=== PATIENT | female | born 1970 | race Hispanic/Latino ===

== ENCOUNTER 2019-04-23 01:22 | Emergency (ER) | payer BC ==
[~2019-04-23] VITALS: Ht 160 cm; Wt 65.8 kg
--- OUTSIDE RECORDS SUMMARY | 2019-04-23 01:25 | XMS REPORT | Continuity of Care Document ---
Author Author Cylance Address Unknown Phone Unavailable Care Team Providers Care Front Desk Representative Name Role Phone [employer] Unavailable Unavailable Problems Problem Status Onset Date Classification Date Reported Comments Source SCREENING Active 02/04/2019 [facility] Pelvic and perineal pain 05/08/2018 11/19/2018 [facility] DX: R10.2=PELVIC AND PERINEAL PAIN Active 04/29/2018 [facility] BREAST PAIN Active 01/27/2018 [facility] CHEST Active 02/21/2017 [facility] Z12.31-ENCOUNTER FOR SCREENING MAMMOGRAM Active 10/25/2015 [facility] Chronic cough (finding) Active Problem 02/24/2017 [facility] Acquired absence of both cervix and uterus 11/19/2018 [facility] Obesity (disorder) Active Problem 03/23/2019 [facility] Acute gastroenteritis (disorder) Active Problem 03/23/2019 [facility] Increased frequency of urination (finding) Active Problem 03/23/2019 [facility] Indigestion (finding) Active Problem 03/23/2019 [facility] Nausea (finding) Active Problem 03/23/2019 [facility] Medications Medication Details Route Status Patient Instructions Ordering Provider Order Date Source omeprazole 40 mg oral delayed release capsule 40 mg=1 cap, PO, Daily, # 30 cap, 0 Refill(s), Pharmacy: [facility] [id number] Active 02/11/2019 [facility] Ondansetron 4 MG Disintegrating Tablet 4 mg=1 tab, PO, TID, PRN Nausea / Vomiting, Dissolve tab under tongue, # 10 tab, 0 Refill(s), Pharmacy: [facility] [id number] Active 02/11/2019 [facility] atorvastatin 10 mg oral tablet 10 mg=1 tab, PO, Bedtime, # 90 tab, 1 Refill(s), Pharmacy: [facility] [id number] Active 01/31/2019 [facility] dehydroepiandrosterone 6.5 MG Vaginal Suppository [Intrarosa] See Instructions, VAG Bedtime, # 1 box, 0 Refill(s), Pharmacy: [facility] [id number] Active 01/29/2019 [facility] montelukast 10 mg oral tablet 10 mg=1 tab, PO, Bedtime, # 30 tab, 0 Refill(s), Pharmacy: [facility] [id number] Active 01/29/2019 [facility] ibuprofen 600 mg oral tablet 600 mg=1 tab, PO, Q12H, PRN Pain or Fever, Take with food, X 10 day, # 40 tab, 0 Refill(s), Pharmacy: [facility] [id number] Active 01/29/2019 [facility] tizanidine 2 mg oral tablet 2 mg=1 tab, PO, Q12H, PRN for muscle spasms, # 40 tab, 0 Refill(s), Pharmacy: [facility] [id number] Active 01/29/2019 [facility] fluconazole 150 mg oral tablet 150 mg=1 tab, PO, ONCE, may repeat dose in 3 days if unimproved, # 1 tab, 1 Refill(s), Pharmacy: [facility] [id number] No Longer Active 09/02/2018 [facility] amoxicillin 500 mg oral tablet 500 mg=1 tab, PO, BID, X 10 day, # 20 tab, 0 Refill(s), Pharmacy: [facility] [id number] No Longer Active 09/02/2018 [facility] levocetirizine dihydrochloride 5 MG Oral Tablet [Xyzal] 5 mg=1 tab, PO, QPM, # 30 tab, 0 Refill(s), Pharmacy: [facility] [id number] Active 05/28/2018 [facility] Fluticasone propionate 0.05 MG/ACTUAT Metered Dose Nasal Harvey 1 spray, NASAL, Daily, # 3 ea, 3 Refill(s), [id number] Active 05/28/2018 [facility] valACYclovir 1 g oral tablet 1 gm=1 tab, PO, Q8H, X 7 day, # 21 tab, 0 Refill(s), Pharmacy: [facility] [id number] No Longer Active 05/28/2018 [facility] tramadol hydrochloride 50 MG Oral Tablet 50 mg=1 tab, PO, BID, X 15 day, # 30 tab, 0 Refill(s) No Longer Active 05/28/2018 [facility] gabapentin 300 MG Oral Capsule 300 mg=1 cap, PO, BID, # 40 caplet, 1 Refill(s), Pharmacy: [facility] [id number] No Longer Active 05/28/2018 [facility] Silver Sulfadiazine 10 MG/ML Topical Cream [Silvadene] 1 appl, TOP, BID, apply thin layer to affected area, X 7 day, # 50 gm, 0 Refill(s), Pharmacy: [facility] [id number] Active 01/23/2018 [facility] predniSONE 20 mg oral tablet 20 mg=1 tab, PO, Daily, X 7 day, # 7 tab, 0 Refill(s), Pharmacy: [facility] 00493 Active 01/23/2018 [facility] Amoxicillin 875 MG / Clavulanate 125 MG Oral Tablet [Augmentin 875-mg] 875 mg=1 tab, PO, Q12H, X 7 day, # 14 tab, 0 Refill(s), Pharmacy: [facility] 397[address] Active 01/23/2018 [facility] Oseltamivir 75 MG Oral Capsule [Tamiflu] 75 mg, PO, Q12H, X 5 day, # 10 cap, 0 Refill(s), Pharmacy: [facility] [id number] Active 07/30/2017 [facility] Brompheniramine Maleate 0.4 MG/ML / Dextromethorphan Hydrobromide 2 MG/ML / Pseudoephedrine Hydrochloride 6 MG/ML Oral Solution [Bromfed DM] 5 mL, PO, TID, PRN cough, X 8 day, # 120 mL, 0 Refill(s), Pharmacy: [facility] [id number] Active 07/30/2017 [facility] Ibuprofen 400 MG Oral Tablet 400 mg=1 tab, PO, Q8H, PRN Fever, as needed for fever or pain, X 14 day, # 30 tab, 0 Refill(s), Pharmacy: [facility] [id number] Active 07/30/2017 [facility] Allergies, Adverse Reactions, Alerts Substance Category Reaction Severity Reaction type Status Date Reported Comments Source Tylenol Assertion Drug allergy Active [facility] codeine Assertion Drug allergy Active [facility] levoFLOXacin Assertion Drug allergy Active [facility] Immunizations Immunization Date Given Site Status Last Updated Comments Source influenza virus vaccine, inactivated<sup>1</sup> 05/28/2018 Left Deltoid completed Min Result Comment: PATIENT WAITED IN ROOM TEN MINS NO ALLERGIC REACTION. [facility] Results No Data Provided for This Section Pathology Reports No Data Provided for This Section Diagnostic Reports Report Value Date Source Breast Mammo Scrn JOHN incl CAD MA BILATERAL DIGITAL SCREENING MAMMOGRAM WITH CAD: 02/05/2019 CLINICAL: Routine screening Z12.31. Current study was evaluated with a Computer Aided Detection (CAD) system. COMPARISON:Comparison is made to exams dated: 02/05/2018 mammogram and 10/28/2015 mammogram - [facility]. TECHNIQUE: Mammographic views were obtained using digital acquisition. International Battery Version 1.3 was utilized for computer aided detection. FINDINGS: There are scattered fibroglandular densities in both breasts. There are benign appearing calcifications and densities in the right breast. There also are benign appearing densities in the left breast. No significant masses, calcifications, or other findings are seen in either breast. There has been no significant interval change. IMPRESSION: BENIGN RECOMMENDATION:There is no mammographic evidence of malignancy. A 1 year screening mammogram is recommended.(02/06/2020) This exam was interpreted at [id number] for [facility]. Linda joseph/sandra:02/05/2019 10:49:32 Editorial Assistant(s): Mary Romero, [facility] letter sent: BI-RADS 1/2 Mammogram BI-RADS: 2 Benign 02/05/2019 [facility] Pelvis w Pelvis Transvaginal US Patient Name: DIOGO AARON : 1970; Age: 47 years y/o Female MR: [id number] Study: Pelvis w Pelvis Transvaginal US 05/02/2018 12:57 PM CDT Ordering Physician: MD Bouchra Villalobos MD Clinical Indication: - pelvic pain; Comparison: None Transabdominal and transvaginal pelvic ultrasound exam Transabdominal series demonstrates absent uterus. Ovaries not adequately seen. Visualized urinary bladder is not remarkable. To better evaluate uterus ovaries and adnexa transvaginal study was performed. This demonstrates absent uterus. Right ovary 2.9 x 1.8 x 2.2 cm. Left ovary 2.4 x 2.1 x 1.8 cm. No adnexal mass or pathologic fluid is evident transvaginally. IMPRESSION: Prior hysterectomy. No pelvic mass or pathologic fluid is evident sonographically. SL: [id number] 05/02/2018 [facility] Breast Complete John US COMPLETE ULTRASOUND OF BOTH BREASTS AND AXILLA: 02/05/2018 CLINICAL: Bilateral Pain/Lump. COMPARISON:Comparison is made to exams dated: 02/05/2018 mammogram, 10/28/2015 mammogram, 05/16/2006 ultrasound, 05/16/2006 mammogram - [facility], and 11/08/2005. TECHNIQUE: Color flow and real-time ultrasound of both breasts four quadrants, retroareolar, and axilla regions were performed. Thompson scale images of the real- time examination were reviewed. FINDINGS: No abnormalities were seen sonographically in either breast or either axilla. IMPRESSION: NEGATIVE RECOMMENDATION:There is no sonographic evidence of malignancy. There are no mammographic or sonographic abnormalities seen in either breast to correspond with the palpable nodularities and pain which likely represent hormonal stimulation and normal fibroglandular tissue. A 1 year screening mammogram is recommended.(02/06/2019) The results were reviewed with the patient. This exam was interpreted at [id number] for [facility]. SUMMARY: The patient will follow up with their primary care physician. It was discussed with the patient that if clinical symptoms worsen, she should return immediately for additional evaluation by her physician and follow up with us for additional imaging. Linda joseph/penrad:02/05/2018 16:18:49 Editorial Assistant(s): Francia Kim [facility] letter sent: BI-RADS 1/2 Ultrasound BI-RADS: 1 Negative 02/05/2018 [facility] Breast Mammo Diag JOHN incl CAD MA BILATERAL DIGITAL DIAGNOSTIC MAMMOGRAM WITH CAD: 02/05/2018 CLINICAL: Bilateral lumps and pain. Current study was evaluated with a Computer Aided Detection (CAD) system. COMPARISON:Comparison is made to exams dated: 10/28/2015 mammogram, 05/16/2006 ultrasound, 05/16/2006 mammogram - [facility], 11/08/2005, 04/26/2005, and 03/20/2005. TECHNIQUE: Mammographic views were obtained using digital acquisition. [employer] Version 1.3 was utilized for computer aided detection. FINDINGS: There are scattered fibroglandular densities in both breasts. There are benign appearing calcifications and densities in the right breast. There also are benign appearing densities in the left breast. No significant masses, calcifications, or other findings are seen in either breast. There has been no significant interval change. IMPRESSION: INCOMPLETE: NEEDS ADDITIONAL IMAGING EVALUATION RECOMMENDATION:There is no mammographic abnormality seen in either breast to correspond with the lateral areas of clinical concern and pain, however, ultrasound is recommended. The results were reviewed with the patient. This exam was interpreted at [id number] for [facility]. SUMMARY: Ultrasound will be performed at this time; please see dedicated separate report. Linda arroyot/:02/05/2018 16:19:32 Editorial Assistant(s): Verenice Pérez, [facility] Mammogram BI-RADS: 0 Indeterminate 02/05/2018 [facility] Chest 2 views DX PROCEDURE: 2 view chest x-ray. Clinical Indication: - r05 cough. Comparison: 02/13/2016 FINDINGS: Normal cardiomediastinal silhouette. No focal lung disease. No effusion or pneumothorax. The visualized osseous structures are unremarkable. IMPRESSION: No focal lung disease. 02/21/2017 [facility] 2 views DX Two-view chest. INDICATION: Cough and chest congestion for one week. Comparison: None. FINDINGS: The cardiomediastinal silhouette is normal in size. Lungs are clear. Costophrenic angles are sharp. No suspicious osseous abnormality is seen. IMPRESSION: No evidence for acute cardiopulmonary disease. SL: [id number] 02/13/2016 [facility] Digital Mammo Screening John MA - DIGITAL MAMMO SCREENING JOHN MA BILATERAL DIGITAL SCREENING MAMMOGRAM WITH CAD: 10/28/2015 CLINICAL: Routine Annual. Current study was evaluated with a Computer Aided Detection (CAD) system. Comparison is made to exams dated: 05/16/2006 mammogram - [facility] and 03/20/2005. There are scattered fibroglandular densities in both breasts. Patient complains of intermittent breast pain and/or tenderness. There are benign appearing densities in both breasts. There also is a benign appearing calcification in the right breast. No significant masses, calcifications, or other findings are seen in either breast. There has been no significant interval change. IMPRESSION: BENIGN Clinical management of the patient's breast complaints is recommended. There is no mammographic evidence of malignancy. A 1 year screening mammogram is recommended. SUMMARY: As the patient has breast parenchyma with scattered densities, this could obscure additional abnormalities. The patient would likely benefit from a supplemental screening test such as bilateral ultrasound. This should be discussed with the patient by the referring physician. Linda joseph/sandra:11/02/2015 15:44:44 Editorial Assistant: Teresa Matamoros, [facility] This exam was dictated and interpreted by [id number] for [facility]. letter sent: Bilateral Benign Mammogram BI-RADS: 2 Benign 10/28/2015 [facility] Consultation Notes No Data Provided for This Section Discharge Summaries No Data Provided for This Section History and Physicals No Data Provided for This Section Vital Signs Vital Sign Value Date Comments Source Respitory Rate 18 02/11/2019 [facility] Heart Rate 68 02/11/2019 [facility] Temperature Oral (F) 97.5 F 02/11/2019 [facility] Systolic (mm Hg) 101 02/11/2019 [facility] Diastolic (mm Hg) 71 02/11/2019 [facility] Weight 70.682 02/11/2019 [facility] Height 157.48 cm 02/11/2019 [facility] BMI Calculated 28.5 02/11/2019 [facility] Weight 70.455 01/29/2019 [facility] Height 154.94 cm 01/29/2019 [facility] BMI Calculated 29.35 01/29/2019 [facility] Temperature Oral (F) 98.0 F 01/29/2019 [facility] Heart Rate 85 01/29/2019 [facility] Respitory Rate 16 01/29/2019 [facility] Systolic (mm Hg) 109 01/29/2019 [facility] Diastolic (mm Hg) 69 01/29/2019 [facility] BMI Calculated 27.34 09/02/2018 [facility] Weight 70 09/02/2018 [facility] Height 160.02 cm 09/02/2018 [facility] Temperature Oral (F) 98.1 F 09/02/2018 [facility] Heart Rate 65 09/02/2018 [facility] Respitory Rate 14 09/02/2018 [facility] Systolic (mm Hg) 106 09/02/2018 [facility] Diastolic (mm Hg) 68 09/02/2018 [facility] BMI Calculated 26.8 05/28/2018 [facility] Respitory Rate 16 05/28/2018 [facility] Heart Rate 59 05/28/2018 [facility] Systolic (mm Hg) 115 05/28/2018 [facility] Diastolic (mm Hg) 76 05/28/2018 [facility] Temperature Oral (F) 97.3 F 05/28/2018 [facility] Height 160.02 cm 05/28/2018 [facility] Weight 68.636 05/28/2018 [facility] Weight 73.182 01/23/2018 [facility] Height 154.94 cm 01/23/2018 [facility] Systolic (mm Hg) 100 01/23/2018 [facility] Diastolic (mm Hg) 64 01/23/2018 [facility] Heart Rate 66 01/23/2018 [facility] Temperature Oral (F) 97.4 F 01/23/2018 [facility] Respitory Rate 14 01/23/2018 [facility] BMI Calculated 30.48 01/23/2018 [facility] Respitory Rate 16 07/30/2017 [facility] Heart Rate 87 07/30/2017 [facility] Systolic (mm Hg) 102 07/30/2017 [facility] Diastolic (mm Hg) 59 07/30/2017 [facility] Temperature Oral (F) 99.3 F 07/30/2017 [facility] Weight 73.182 07/30/2017 [facility] BMI Calculated 29.51 07/30/2017 [facility] Height 157.48 cm 07/30/2017 [facility] Encounters Location Location Details Encounter Type Encounter Number Reason For Visit Attending Provider ADM Date DC Date Status Source [facility] Outpatient [id number] Kala Thakur 10/28/2015 10/29/2015 [facility] Outpatient [id number] [place] 11/07/2015 Active [facility] Outpatient [id number] MACIEL GORDILLO 02/13/2016 Active [facility] Outpatient [id number] KALA THAKUR 02/23/2016 Active [facility] Outpatient [id number] MARISELA CUI 09/27/2016 Active [facility] Outpatient [id number] KALA THAKUR 12/25/2016 Active [facility] Outpatient [id number] KALA THAKUR 01/23/2017 Active [facility] Outpatient [id number] Kala Thakur 02/21/2017 02/22/2017 [facility] Outpatient [id number] AKIKO TOLBERT 03/01/2017 Active [facility] Outpatient [id number] KALA THAKUR 07/30/2017 Active [facility] Outpatient [id number] Kala Thakur 07/30/2017 07/31/2017 [facility] Outpatient [id number] KALA THAKUR 01/23/2018 Active [facility] Outpatient [id number] Kala Thakur 01/23/2018 01/24/2018 [facility] Outpatient [id number] Kala Thakur 02/05/2018 02/06/2018 [facility] Outpatient [id number] Bouchra Leonarddeb 05/02/2018 05/03/2018 [facility] Outpatient [id number] KALA THAKUR 05/28/2018 Active [facility] Outpatient [id number] Kala Thakur 05/28/2018 05/29/2018 [facility] Phone Message [id number] 06/19/2018 06/21/2018 [facility] Outpatient [id number] AKIKO TOLBERT 09/02/2018 Active [facility] Outpatient [id number] Akiko Tolbert 09/02/2018 09/03/2018 [facility] Outpatient [id number] Kala Thakur 01/29/2019 Active [facility] Outpatient [id number] Kala Thakur 01/29/2019 01/30/2019 [facility] Outpatient [id number] Kala Thakur 02/05/2019 02/06/2019 [facility] Outpatient [id number] Lolly Gilman 02/11/2019 Active [facility] Outpatient [id number] Kala Thakur 02/11/2019 02/12/2019 [facility] Procedures Procedure Code Date Perfomer Comments Source Mammogram<sup>1, 2</sup> [id number] 02/05/2019 There is no mammographic evidence of malignancy. A 1 year screening mammogram is recommended.(02/06/2020)A 1 year screening mammogram is recommended.(02/06/2019) [facility] Mammogram<sup>1</sup> [id number] 02/05/2018 A 1 year screening mammogram is recommended.(02/06/2019) [facility] Mammogram [id number] 10/28/2015 [facility] Hysterectomy [id number] 08/26/2003 [facility] section<sup>1</sup> 46642720 x3 [facility] section<sup>2</sup> 50349753 x3 [facility] section<sup>3</sup> 57700550 x3 [facility] Assessment and Plan No Data Provided for This Section Plan of Care No Data Provided for This Section Social History Social History Date Source Social History TypeResponse Employment/School Status: Employed. Work/School description: floor cashier. Alcohol Never Smoking Status Never smoker; Exposure to Tobacco Smoke None; Cigarette Smoking Last 365 Days No; Reg Smoking Cessation Counseling No entered on: 01/29/19 03/01/2017 [facility] Social History TypeResponse Employment/School Status: Employed. Work/School description: floor cashier. Alcohol Never Smoking Status Never smoker; Exposure to Tobacco Smoke None; Cigarette Smoking Last 365 Days No; Reg Smoking Cessation Counseling No entered on: 02/11/19 03/01/2017 [facility] Family History No Data Provided for This Section Advance Directives No Data Provided for This Section Functional Status No Data Provided for This Section
--- OUTSIDE RECORDS SUMMARY | 2019-04-23 01:25 | XMS REPORT | Summary of Care ---
Author Author [facility] Organization [facility] Address Unknown Phone Unavailable Encounter DAVIN Rosenthal(NARINDER) [id number] Date(s): 01/29/19 - 01/29/19 [facility] [address] [facility] [address] [place] [address]- Discharge Disposition: Home or Self Care Attending Physician: Ping Fountain MD Vital Signs Most recent to 1 oldest [Reference Range]: Height 154.94 cm (01/29/19 12:20 PM) Temperature Oral 98.0 DegF [96.4-99.1 DegF] (01/29/19 12:20 PM) Blood Pressure 109/69 mmHg [90-140/60-90 mmHg] (01/29/19 12:20 PM) Respiratory Rate 16 BRMIN [14-20 BRMIN] (01/29/19 12:20 PM) Peripheral Pulse 85 bpm Rate [60-100 bpm] (01/29/19 12:20 PM) Weight 70.455 kg (01/29/19 12:20 PM) Body Mass Index 29.35 m2 (01/29/19 12:20 PM) Problem List Condition Effective Dates Status Health Status Informant Obesity(Confirmed) Active Allergies, Adverse Reactions, Alerts Substance Reaction Severity Status codeine Active Tylenol Active levoFLOXacin Active Medications ibuprofen 600 mg oral tablet 600 mg=1 tab, PO, Q12H, PRN Pain or Fever, Take with food, X 10 day, # 40 tab, 0 Refill(s), Pharmacy: [facility] [id number] Start Date: 01/29/19 Stop Date: 02/08/19 Status: Ordered Intrarosa 6.5 mg vaginal insert See Instructions, VAG Bedtime, # 1 box, 0 Refill(s), Pharmacy[place] [email or web address] [id number] Start Date: 01/29/19 Status: Ordered montelukast 10 mg oral tablet 10 mg=1 tab, PO, Bedtime, # 30 tab, 0 Refill(s), Pharmacy: [facility] [id number] Start Date: 01/29/19 Status: Ordered tizanidine 2 mg oral tablet 2 mg=1 tab, PO, Q12H, PRN for muscle spasms, # 40 tab, 0 Refill(s), Pharmacy: [facility] [id number] Start Date: 01/29/19 Status: Ordered Results No data available for this section Immunizations Given and Recorded Vaccine Date Status Refusal Reason influenza virus vaccine, inactivated1 05/28/18 Given 1Result Comment: PATIENT WAITED IN ROOM TEN MINS NO ALLERGIC REACTION. Procedures Procedure Date Related Diagnosis Body Site Status Mammogram1 02/05/18 Completed Hysterectomy 2004 Completed section2 Completed 1A 1 year screening mammogram is recommended.(02/06/2019) 2x3 Social History Social History Type Response Employment/School Status: Employed. Work/School description: hostess cashier. Alcohol Never Smoking Status Never smoker; Exposure to Tobacco Smoke None; Cigarette Smoking Last 365 Days No; Reg Smoking Cessation Counseling No entered on: 01/29/19 Assessment and Plan No data available for this section
--- OUTSIDE RECORDS SUMMARY | 2019-04-23 01:25 | XMS REPORT | Summary of Care ---
Author Author [facility] Organization [facility] Address Unknown Phone Unavailable Encounter [facility] Souleymanentr_sujata(FIN) [id number] Date(s): 10/28/15 - 10/28/15 [facility] [address] [place] [address]- Discharge Disposition: Home Attending Physician: Ping Fountain MD Referring Physician: Ping Fountain MD Vital Signs No data available for this section Problem List No data available for this section Allergies, Adverse Reactions, Alerts Substance Reaction Severity Status Tylenol Active Medications No data available for this section Results No data available for this section Immunizations No data available for this section Procedures Procedure Date Related Diagnosis Body Site Hysterectomy 2004 section1 1x3 Social History Social History Type Response Smoking Status Never smoker; Exposure to Tobacco Smoke None; Cigarette Smoking Last 365 Days No; Reg Smoking Cessation Counseling No Assessment and Plan No data available for this section
--- OUTSIDE RECORDS SUMMARY | 2019-04-23 01:25 | XMS REPORT | Summary of Care ---
Author Author [facility] Organization [facility] Address Unknown Phone Unavailable Encounter DAVIN Rosenthal(FIN) [id number] Date(s): 07/30/17 - 07/30/17 [facility] [address], [address] [place] [address]- [phone] Discharge Disposition: Home or Self Care Attending Physician: Ping Fountain MD Vital Signs Most recent to 1 oldest [Reference Range]: Height 157.48 cm (07/30/17 10:01 AM) Temperature Oral 99.3 DegF [96.4-99.1 DegF] *HI* (07/30/17 10:01 AM) Blood Pressure 102/59 mmHg [90-140/60-90 mmHg] (07/30/17 10:01 AM) Respiratory Rate 16 BRMIN [14-20 BRMIN] (07/30/17 10:01 AM) Peripheral Pulse 87 bpm Rate [60-100 bpm] (07/30/17 10:01 AM) Weight 73.182 kg (07/30/17 10:01 AM) Body Mass Index 29.51 m2 (07/30/17 10:01 AM) Problem List Condition Effective Dates Status Health Status Informant Obesity(Confirmed) Active Allergies, Adverse Reactions, Alerts Substance Reaction Severity Status codeine Active Tylenol Active levoFLOXacin Active Medications Bromfed DM oral syrup 5 mL, PO, TID, PRN cough, X 8 day, # 120 mL, 0 Refill(s), Pharmacy: [facility] [id number] Start Date: 07/30/17 Stop Date: 08/07/17 Status: Ordered ibuprofen 400 mg oral tablet 400 mg=1 tab, PO, Q8H, PRN Fever, as needed for fever or pain, X 14 day, # 30 ta b, 0 Refill(s), Pharmacy: [facility] [id number] Start Date: 07/30/17 Stop Date: 08/13/17 Status: Ordered TamiFLU 75 mg oral capsule 75 mg, PO, Q12H, X 5 day, # 10 cap, 0 Refill(s), Pharmacy: [facility] [id number] Start Date: 07/30/17 Stop Date: 08/04/17 Status: Ordered Results No data available for this section Immunizations No data available for this section Procedures Procedure Date Related Diagnosis Body Site Mammogram 10/28/15 Hysterectomy 2004 section1 1x3 Social History Social History Type Response Employment/School Status: Employed. Work/School description: neurology nurse. Alcohol Never Smoking Status Never smoker; Exposure to Tobacco Smoke None; Cigarette Smoking Last 365 Days No; Reg Smoking Cessation Counseling No Assessment and Plan No data available for this section
--- OUTSIDE RECORDS SUMMARY | 2019-04-23 01:25 | XMS REPORT | Summary of Care ---
Author Author [facility] Organization [facility] Address Unknown Phone Unavailable Encounter HQ Galo(NARINDER) [id number] Date(s): 02/05/18 - 02/05/18 [facility] [address] [place] [address]- Discharge Disposition: Home or Self Care Attending Physician: Ping Fountain MD Referring Physician: Ping Fountain MD Vital Signs No data available for this section Problem List Condition Effective Dates Status Health Status Informant Obesity(Confirmed) Active Allergies, Adverse Reactions, Alerts Substance Reaction Severity Status codeine Active Tylenol Active levoFLOXacin Active Medications No data available for this section Results No data available for this section Immunizations No data available for this section Procedures Procedure Date Related Diagnosis Body Site Status Mammogram1 02/05/18 Completed Hysterectomy 2004 Completed section2 Completed 1A 1 year screening mammogram is recommended.(02/06/2019) 2x3 Social History Social History Type Response Employment/School Status: Employed. Work/School description: service bar cashier. Alcohol Never Smoking Status Never smoker; Exposure to Tobacco Smoke None; Cigarette Smoking Last 365 Days No; Reg Smoking Cessation Counseling No entered on: 01/23/18 Assessment and Plan No data available for this section
--- OUTSIDE RECORDS SUMMARY | 2019-04-23 01:25 | XMS REPORT | Summary of Care ---
Author Author [facility] Organization [facility] Address Unknown Phone Unavailable Encounter HQ Jacintar_sujata(NARINDER) [id number] Date(s): 02/21/17 - 02/21/17 [facility] [address] [place] [address]- Discharge Disposition: Home or Self Care Attending Physician: Ping Fountain MD Vital Signs No data available for this section Problem List Condition Effective Dates Status Health Status Informant Chronic Active cough(Confirmed) Obesity(Confirmed) Active Allergies, Adverse Reactions, Alerts Substance Reaction Severity Status codeine Active Tylenol Active Medications No data available for this section Results No data available for this section Immunizations No data available for this section Procedures Procedure Date Related Diagnosis Body Site Mammogram 10/28/15 Hysterectomy 2004 section1 1x3 Social History Social History Type Response Alcohol Never Smoking Status Never smoker; Exposure to Tobacco Smoke None; Cigarette Smoking Last 365 Days No; Reg Smoking Cessation Counseling No Assessment and Plan No data available for this section
--- OUTSIDE RECORDS SUMMARY | 2019-04-23 01:25 | XMS REPORT | Summary of Care ---
Author Author [facility] Organization [facility] Address Unknown Phone Unavailable Encounter HQ Galo(FIN) [id number] Date(s): 05/02/18 - 05/02/18 [facility] [address] [place] [address]- Encounter Diagnosis Pelvic and perineal pain (Final) - 05/07/18 Acquired absence of both cervix and uterus (Final) - Discharge Disposition: Home or Self Care Attending Physician: Bouchra Villalobos MD Admitting Physician: Bouchra Villalobos MD Referring Physician: Bouchra Villalobos MD Vital Signs No data available for [...] Type Response Employment/School Status: Employed. Work/School description: tube room cashier. Alcohol Never Smoking Status Never smoker; Exposure to Tobacco Smoke None; Cigarette Smoking Last 365 Days No; Reg Smoking Cessation Counseling No entered on: 09/02/18 Assessment and Plan No data available for this section
--- OUTSIDE RECORDS SUMMARY | 2019-04-23 01:25 | XMS REPORT | Summary of Care ---
Author Author [facility] Organization [facility] Address Unknown Phone Unavailable Care Team Providers Care Unloader Name Role Phone Ping Fountain PCP Encounter HQ Galo(FIN) [phone] Date(s): 06/19/18 - 06/20/18 [facility] [address] [place] [address]- Vital Signs No data available for this [...] Type Response Employment/School Status: Employed. Work/School description: food and beverage cashier. Alcohol Never Smoking Status Never smoker; Exposure to Tobacco Smoke None; Cigarette Smoking Last 365 Days No; Reg Smoking Cessation Counseling No entered on: 09/02/18 Assessment and Plan No data available for this section
--- OUTSIDE RECORDS SUMMARY | 2019-04-23 01:25 | XMS REPORT | Summary of Care ---
Author Author [facility] Organization [facility] Address Unknown Phone Unavailable Care Team Providers Care Distribution Specialist Name Role Phone Ping Fountain PCP Encounter HQ Galo(FIN) [phone] Date(s): 02/11/19 - 02/11/19 [facility] [address] [place] [address]- Discharge Disposition: Home or Self Care Attending Physician: Ping Fountain MD Vital Signs Most recent to 1 oldest [Reference Range]: Height 157.48 cm (02/11/19 12:59 PM) Temperature Oral 97.5 DegF [96.4-99.1 DegF] (02/11/19 12:59 PM) Blood Pressure 101/71 mmHg [90-140/60-90 mmHg] (02/11/19 12:59 PM) Respiratory Rate 18 BRMIN [14-20 BRMIN] (02/11/19 12:59 PM) Peripheral Pulse 68 bpm Rate [60-100 bpm] (02/11/19 12:59 PM) Weight 70.682 kg (02/11/19 12:59 PM) Body Mass Index 28.5 m2 (02/11/19 12:59 PM) Problem List Condition Effective Dates Status Health Status Informant Acute Active gastroenteritis(Conf irmed) Urinary Active frequency(Confirmed) Dyspepsia(Confirmed) Active Nausea(Confirmed) Active Obesity(Confirmed) Active Allergies, Adverse Reactions, Alerts Substance Reaction Severity Status codeine Active Tylenol Active levoFLOXacin Active Medications omeprazole 40 mg oral delayed release capsule 40 mg=1 cap, PO, Daily, # 30 cap, 0 Refill(s), Pharmacy: [facility] Start Date: 02/11/19 Stop Date: 03/13/19 Status: Ordered ondansetron 4 mg oral tablet, disintegrating 4 mg=1 tab, PO, TID, PRN Nausea / Vomiting, Dissolve tab under tongue, # 10 tab, 0 Refill(s), Pharmacy: [facility] [id number] Start Date: 02/11/19 Stop Date: 02/14/19 Status: Ordered Results No data available for this section Immunizations Given and Recorded Vaccine Date Status Refusal Reason influenza virus vaccine, inactivated1 05/28/18 Given 1Result Comment: PATIENT WAITED IN ROOM TEN MINS NO ALLERGIC REACTION. Procedures Procedure Date Related Diagnosis Body Site Status Mammogram1, 2 02/05/19 Completed Hysterectomy 2004 Completed section3 Completed 1There is no mammographic evidence of malignancy. A 1 year screening mammogram is recommended.(02/06/2020) 2A 1 year screening mammogram is recommended.(02/06/2019) 3x3 Social History Social History Type Response Employment/School Status: Employed. Work/School description: check cashier. Alcohol Never Smoking Status Never smoker; Exposure to Tobacco Smoke None; Cigarette Smoking Last 365 Days No; Reg Smoking Cessation Counseling No entered on: 02/11/19 Assessment and Plan No data available for this section
--- OUTSIDE RECORDS SUMMARY | 2019-04-23 01:25 | XMS REPORT | Summary of Care ---
Author Author [facility] Organization [facility] Address Unknown Phone Unavailable Care Team Providers Care Correction Officer Reformatory Name Role Phone Ping Fountain PCP Encounter HQ Rosy_sujata(FIN) [phone] Date(s): 02/05/19 - 02/05/19 [facility] [address] [place] [address]- Discharge Disposition: Home or Self Care Attending [...] Type Response Employment/School Status: Employed. Work/School description: office cashier. Alcohol Never Smoking Status Never smoker; Exposure to Tobacco Smoke None; Cigarette Smoking Last 365 Days No; Reg Smoking Cessation Counseling No entered on: 01/29/19 Assessment and Plan No data available for this section
--- OUTSIDE RECORDS SUMMARY | 2019-04-23 01:25 | XMS REPORT | Summary of Care ---
Author Author [facility] Organization [facility] Address Unknown Phone Unavailable Encounter DAVIN Rosenthal(NARINDER) [id number] Date(s): 05/28/18 - 05/28/18 [facility] [address] [place] [address]- Discharge Disposition: Home or Self Care Attending Physician: Ping Fountain MD Vital Signs Most recent to 1 oldest [Reference Range]: Height 160.02 cm (05/28/18 1:06 PM) Temperature Oral 97.3 DegF [96.4-99.1 DegF] (05/28/18 1:06 PM) Blood Pressure 115/76 mmHg [90-140/60-90 mmHg] (05/28/18 1:06 PM) Respiratory Rate 16 BRMIN [14-20 BRMIN] (05/28/18 1:06 PM) Peripheral Pulse 59 bpm Rate [60-100 bpm] *LOW* (05/28/18 1:06 PM) Weight 68.636 kg (05/28/18 1:06 PM) Body Mass Index 26.8 m2 (05/28/18 1:06 PM) Problem List Condition Effective Dates Status Health Status Informant Obesity(Confirmed) Active Allergies, Adverse Reactions, Alerts Substance Reaction Severity Status codeine Active Tylenol Active levoFLOXacin Active Medications fluticasone nasal 0.05 mg/inh spray 1 spray, NASAL, Daily, # 3 ea, 3 Refill(s), Pharmacy: [facility] [id number] Start Date: 05/28/18 Stop Date: 05/23/19 Status: Ordered gabapentin 300 mg oral capsule 300 mg=1 cap, PO, BID, # 40 caplet, 1 Refill(s), Pharmacy: [facility] [id number] Start Date: 05/28/18 Stop Date: 09/02/18 Status: Discontinued tramadol 50 mg oral tablet 50 mg=1 tab, PO, BID, X 15 day, # 30 tab, 0 Refill(s) Start Date: 05/28/18 Stop Date: 06/12/18 Status: Completed valACYclovir 1 g oral tablet 1 gm=1 tab, PO, Q8H, X 7 day, # 21 tab, 0 Refill(s), Pharmacy: [facility] [address] Start Date: 05/28/18 Stop Date: 06/04/18 Status: Completed Xyzal 5 mg oral tablet 5 mg=1 tab, PO, QPM, # 30 tab, 0 Refill(s), Pharmacy: [facility] [address] Start Date: 05/28/18 Status: Ordered Results No data available for [...]
--- OUTSIDE RECORDS SUMMARY | 2019-04-23 01:25 | XMS REPORT | Summary of Care ---
Author Author [facility] Organization [facility] Address Unknown Phone Unavailable Encounter DAVIN Rosenthal(FIN) [id number] Date(s): 01/23/18 - 01/23/18 [facility] [address] [place] [address]- [phone] Discharge Disposition: Home or Self Care Attending Physician: Ping Fountain MD Vital Signs Most recent to 1 oldest [Reference Range]: Height 154.94 cm (01/23/18 12:40 PM) Temperature Oral 97.4 DegF [96.4-99.1 DegF] (01/23/18 12:40 PM) Blood Pressure 100/64 mmHg [90-140/60-90 mmHg] (01/23/18 12:40 PM) Respiratory Rate 14 BRMIN [14-20 BRMIN] (01/23/18 12:40 PM) Peripheral Pulse 66 bpm Rate [60-100 bpm] (01/23/18 12:40 PM) Weight 73.182 kg (01/23/18 12:40 PM) Body Mass Index 30.48 m2 (01/23/18 12:40 PM) Problem List Condition Effective Dates Status Health Status Informant Obesity(Confirmed) Active Allergies, Adverse Reactions, Alerts Substance Reaction Severity Status codeine Active Tylenol Active levoFLOXacin Active Medications Augmentin 875 mg oral tablet 875 mg=1 tab, PO, Q12H, X 7 day, # 14 tab, 0 Refill(s), Pharmacy: [facility] [id number] Start Date: 01/23/18 Stop Date: 01/30/18 Status: Ordered predniSONE 20 mg oral tablet 20 mg=1 tab, PO, Daily, X 7 day, # 7 tab, 0 Refill(s), Pharmacy: [facility] [id number] Start Date: 01/23/18 Stop Date: 01/30/18 Status: Ordered Silvadene 1% topical cream 1 appl, TOP, BID, apply thin layer to affected area, X 7 day, # 50 gm, 0 Refill( s), Pharmacy: [facility] [id number] Start Date: 01/23/18 Stop Date: 01/30/18 Status: Ordered Results No data available for this section Immunizations No data available for this section Procedures Procedure Date Related Diagnosis Body Site Status Mammogram 10/28/15 Completed Hysterectomy 2004 Completed section1 Completed 1x3 Social History Social History Type Response Employment/School Status: Employed. Work/School description: center aisle cashier. Alcohol Never Smoking Status Never smoker; Exposure to Tobacco Smoke None; Cigarette Smoking Last 365 Days No; Reg Smoking Cessation Counseling No entered on: 01/23/18 Assessment and Plan No data available for this section
--- OUTSIDE RECORDS SUMMARY | 2019-04-23 01:25 | XMS REPORT | Summary of Care ---
Author Author [facility] Organization [facility] Address Unknown Phone Unavailable Encounter DAVIN Rosenthal(FIN) [id number] Date(s): 09/02/18 - 09/02/18 [facility] [address] [place] [address]- Discharge Disposition: Home or Self Care Attending Physician: Chrystal Tolbert DO Vital Signs Most recent to 1 oldest [Reference Range]: Height 160.02 cm (09/02/18 1:17 PM) Temperature Oral 98.1 DegF [96.4-99.1 DegF] (09/02/18 1:17 PM) Blood Pressure 106/68 mmHg [90-140/60-90 mmHg] (09/02/18 1:17 PM) Respiratory Rate 14 BRMIN [14-20 BRMIN] (09/02/18 1:17 PM) Peripheral Pulse 65 bpm Rate [60-100 bpm] (09/02/18 1:17 PM) Weight 70 kg (09/02/18 1:17 PM) Body Mass Index 27.34 m2 (09/02/18 1:17 PM) Problem List Condition Effective Dates Status Health Status Informant Acute Active gastroenteritis(Conf irmed) Urinary Active frequency(Confirmed) Dyspepsia(Confirmed) Active Nausea(Confirmed) Active Obesity(Confirmed) Active Allergies, Adverse Reactions, Alerts Substance Reaction Severity Status codeine Active Tylenol Active levoFLOXacin Active Medications amoxicillin 500 mg oral tablet 500 mg=1 tab, PO, BID, X 10 day, # 20 tab, 0 Refill(s), Pharmacy: [facility] [id number] Start Date: 09/02/18 Stop Date: 09/12/18 Status: Completed atorvastatin 10 mg oral tablet 10 mg=1 tab, PO, Bedtime, # 90 tab, 1 Refill(s), Pharmacy: [facility] [address] Start Date: 01/31/19 Status: Ordered fluconazole 150 mg oral tablet 150 mg=1 tab, PO, ONCE, may repeat dose in 3 days if unimproved, # 1 tab, 1 Refi ll(s), [facility] [address] Start Date: 09/02/18 Stop Date: 01/29/19 Status: Discontinued Results No data available for this section [...] Type Response Employment/School Status: Employed. Work/School description: cashier general. Alcohol Never Smoking Status Never smoker; Exposure to Tobacco Smoke None; Cigarette Smoking Last 365 Days No; Reg Smoking Cessation Counseling No entered on: 02/11/19 Assessment and Plan No data available for this section
[2019-04-23] MEDS ORDERED: KETOROLAC TROMETHAMINE 30 MG/ML VIAL IV STA (01:39)
[2019-04-23] MEDS ORDERED: PROMETHAZINE 12.5MG/ NACL 0.9% 12.5 MG/50 ML BAG IV ONE (01:45)
[2019-04-23] MEDS ORDERED: SODIUM CHLORIDE 0.9% 1000ML 1,000 ML IV SCH (01:45)
[2019-04-23] MEDS ORDERED: PROMETHAZINE HCL (IM) 25 MG/ML VIAL ONE (01:51)
[2019-04-23] MEDS ORDERED: MORPHINE SULFATE 2 MG/ML SYR 1ML IV STA (02:05)
--- NOTE | 2019-04-23 02:14 | Diagnostic Imaging Report ---
History: Headaches Comparison studies: None Technique: Axial images were obtained from the skull base to the vertex. Coronal and sagittal reconstructions obtained from the axial data. Dose modulation, iterative reconstruction, and/or weight based adjustment of the mA/kV was utilized to reduce the radiation dose to as low as reasonably achievable. Intravenous contrast: None Findings: Scalp/skull: No abnormalities. No fractures, blastic or lytic lesions. Extra-axial spaces: No masses. No fluid collections. Brain sulci: Appropriate for age. Ventricles: Normal in size and configuration. No hydrocephalus. Parenchyma: No abnormal densities. No masses, hemorrhage, acute or chronic cortical vascular insults. Sellar/suprasellar region: No abnormalities Craniocervical junction: Patent foramen magnum. No Chiari one malformation. Incidental findings: None. IMPRESSION: No abnormalities. Signed by: Dr. Ramy Constantino M.D. on 04/23/2019 2:11 AM
[2019-04-23] MEDS ORDERED: ONDANSETRON ODT8 MG PO (02:33)
[2019-04-23] MEDS ORDERED: AMBIEN5 MG PO (02:33)
[2019-04-23] MEDS ORDERED: BUTALB-ACETAMI1 EACH PO (02:33)
== END 2019-04-23 02:40 | disposition home or self-care (01) ==
LOC: FSED 01:22
DX: G44.89 Other headache syndrome (principal); E78.5 Hyperlipidemia, unspecified
CPT/HCPCS: 70450; 80053; 84484; 85025; 93005; 99284; J1885; J2550; J7030

== ENCOUNTER 2020-08-29 11:44 | Emergency (ER) | payer BC ==
[~2020-08-29] VITALS: Ht 157.5 cm; Wt 81.2 kg
[~2020-08-29 11:44] MED LIST: AMBIEN5 MG PO; BUTALB-ACETAMI1 EACH PO; ONDANSETRON ODT8 MG PO
[2020-08-29] MEDS ORDERED: ONDANSETRON HCL 4 MG ORAL DISINTEGRATING TAB PO ONE (12:45)
[2020-08-29] MEDS ORDERED: ONDANSETRON HCL 4 MG ORAL DISINTEGRATING TAB ONE (14:26)
[2020-08-29] MEDS ORDERED: ACETAMINOPHEN 325 MG TAB ONE (14:28)
[2020-08-29] MEDS ORDERED: CEFTRIAXONE SOD 1 GM VIAL IM ONE (14:30)
[2020-08-29] MEDS ORDERED: IBUPROFEN 400 MG TAB PO ONE (14:45)
[2020-08-29] MEDS ORDERED: IBUPROFEN 200 MG TAB ONE (14:59)
[2020-08-29] MEDS ORDERED: CEFTRIAXONE SOD 1 GM VIAL ONE (14:59)
[2020-08-29] MEDS ORDERED: ACETAMINOPHEN 325 MG TAB PO ONE (15:00)
[2020-08-29] MEDS ORDERED: ONDANSETRON ODT8 MG PO (15:26)
[2020-08-29] MEDS ORDERED: CEFDINIR300 MG PO (15:27)
[2020-08-29 15:39] VITALS: BP 130/72
== END 2020-08-29 15:41 | disposition home or self-care (01) ==
LOC: FSED 12:15
DX: R50.9 Fever, unspecified (principal); N39.0 Urinary tract infection, site not specified; M79.10 Myalgia, unspecified site; E78.5 Hyperlipidemia, unspecified
CPT/HCPCS: 81003; 87086; 96372; 99283; J0696; Q0162

== ENCOUNTER → 2024-12-18 | Day surgery (SDC) | payer BC ==
[~2024-12-18] MED LIST changes: +CEFDINIR300 MG PO; +LIDOCAINE HCL 2% LOCAL INJ 5 ML SDV VIAL INJ ONE; +MIDAZOLAM HCL 2 MG/2 ML VIAL ONE; +PANTOPRAZOLE SO40 MG PO; +PROPOFOL IV EMULSION 10 MG/ML 20 ML VIAL ONE
[2024-12-18] MEDS: LACTATED RINGER'S 1,000 ML ONE (09:41)
[2024-12-18 10:52] VITALS: TEMP 97.9
[2024-12-18 11:20] VITALS: BP 128/82; PULSE 71; RESP 15; O2SAT 100
== END | disposition home or self-care (01) ==
LOC: OR 08:50
PROVIDERS: ATTEND Internal Medicine Gastroenterology
DX: Z12.11 Encounter for screening for malignant neoplasm of colon (principal); D12.8 Benign neoplasm of rectum; K31.7 Polyp of stomach and duodenum; K29.70 Gastritis, unspecified, without bleeding; K31.89 Other diseases of stomach and duodenum; K44.9 Diaphragmatic hernia without obstruction or gangrene; K21.9 Gastro-esophageal reflux disease without esophagitis; K62.5 Hemorrhage of anus and rectum; R19.7 Diarrhea, unspecified; K57.30 Diverticulosis of large intestine without perforation or abscess without bleeding; K62.89 Other specified diseases of anus and rectum; K64.1 Second degree hemorrhoids; N39.0 Urinary tract infection, site not specified; I45.10 Unspecified right bundle-branch block; Z88.6 Allergy status to analgesic agent; Z01.810 Encounter for preprocedural cardiovascular examination; Z79.1 Long term (current) use of non-steroidal anti-inflammatories (NSAID); Z87.898 Personal history of other specified conditions
CPT/HCPCS: 43239; 43251; 45380; 93005; J2003; J2250; J2704; J7121; 45378; 45384